=== PATIENT | male | born 1960 | race Caucasian/White ===

== ENCOUNTER 2020-04-16 06:54 | Outpatient (NON) | payer BC, SELFPAY ==
[2020-04-17 18:58] LABS: SARS-CoV-2 RNA PCR Negative
== END 2020-04-16 06:55 ==
LOC: ANHCOVIDDT 06:55
PROVIDERS: PCP Physician Assistant; Visit Provider Physician Assistant
DX: Z13.9 Encounter for screening, unspecified (principal); Z20.828 Contact with and (suspected) exposure to other viral communicable diseases
CPT/HCPCS: 87635; C9803; U0003

== ENCOUNTER → 2020-05-11 15:12 | Outpatient (CLI) | payer BC, SELFPAY ==
--- NOTE | ~2020-05-11 | MR_ITS ---
EXAMINATION: MR knee LT wo con DATE: 05/11/2020 15:51 INDICATION: Acute onset bilateral knee pain post fall 2-3 weeks prior.. TECHNIQUE: Magnetic resonance imaging (MRI) of the left knee was performed without intravenous contra st. Sequences included coronal PD-weighted FSE, coronal PD-weighted FS FSE, sagittal T2-weighted FSE , sagittal PD-weighted FS FSE and axial PD weighted fat saturated FSE. COMPARISON: None. FINDINGS: Medial compartment: Medial meniscus is normal. Articular cartilage is normal. Lateral compartment: Lateral meniscus is normal. Articular cartilage is normal. Patellofemoral compartment: Deep chondral ulceration with mild cortical irregularity and minimal subarticular edema at the both t he medial and lateral trochlea and intervening trochlear groove. Shallow chondral fissuring at the me dial patellar facet and apical ridge. Ligaments and tendons: Anterior and posterior cruciate ligaments are normal. Prominent thickening and increased signal of th e proximal third of the medial collateral ligament with surrounding edema consistent with likely high -grade partial possibly complete tear. Fibular collateral ligament complex is normal. The extensor me chanism is normal. The visualized medial and lateral hamstring tendons as well as the iliotibial band are normal. Fluid: Minimal joint effusion at the lateral gutter of the suprapatellar pouch. No loose osteochondral margaux s identified. Tiny Song's cyst. Osseous/other: There is marrow edema without evident fracture line along the anteromedial rim of the medial tibial p lateau, the medial margin of the mid weightbearing medial femoral condyle and lateral margin of the m id lateral weightbearing femoral condyle likely related to bone contusions. No fracture or pathologic marrow replacing process. IMPRESSION: 1. Complete or near-complete tear of the proximal medial collateral ligament. 2. Bone contusions along the peripheral margins of the weightbearing medial and lateral femoral condy les and anteromedial rim of the medial tibial plateau. 3. 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 Reviewed, dictated and finalized at location A. [employer] IMPRESSION: 1. Complete or near-complete tear of the proximal medial collateral ligament. 2. Bone contusions along the peripheral margins of the weightbearing medial and lateral femoral condyles and anteromedial rim of the medial tibial plateau. 3. 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
== END ==
PROVIDERS: PCP Physician Assistant; Visit Provider Internal Medicine
DX: M17.12 Unilateral primary osteoarthritis, left knee (principal); S80.02XA Contusion of left knee, initial encounter; X58.XXXA Exposure to other specified factors, initial encounter; S83.412A Sprain of medial collateral ligament of left knee, initial encounter
CPT/HCPCS: 73721

== ENCOUNTER → 2020-05-12 15:35 | Outpatient (CLI) | payer BC, SELFPAY ==
--- NOTE | ~2020-05-12 | MR_ITS ---
EXAMINATION: MR knee RT wo con DATE: 05/12/2020 16:23 INDICATION: Acute onset bilateral knee pain. TECHNIQUE: Magnetic resonance imaging (MRI) of the right knee was performed without intravenous contr ast. Sequences included coronal PD-weighted FSE, coronal PD-weighted FS FSE, sagittal T2-weighted FS E, sagittal PD-weighted FS FSE and axial PD weighted fat saturated FSE. COMPARISON: Left knee MRI dated 05/11/2020 FINDINGS: Medial compartment: Medial meniscus is normal. Articular cartilage is normal. Lateral compartment: Lateral meniscus is normal. Articular cartilage is normal. Patellofemoral compartment: Deep chondral ulceration with mild cortical irregularity and minimal subarticular edema at the both t he medial and lateral trochlea and intervening trochlear groove. Shallow chondral fissuring at the me dial patellar facet and apical ridge. This appears very similar to the contralateral left knee. Deep chondral fissure with tiny focus of subarticular edema at the patellar apical ridge. Ligaments and tendons: Anterior and posterior cruciate ligaments are normal. Thickening and prominent increased signal along the anterior margin of the proximal medial collateral ligament consistent with partial thickness tea r/moderate grade sprain which appears significantly less severe than the previous noted injury at the contralateral left knee. The fibular collateral ligament complex is normal. Mild distal quadriceps t endinopathy with tiny enthesophyte. Mild proximal patellar tendinopathy with small partial-thickness longitudinal split tear extending across the deeper two thirds of the proximal tendon. The visualized medial and lateral hamstring tendons as well as the iliotibial band are normal. Fluid: Minimal joint effusion at the lateral gutter of the suprapatellar pouch. No loose osteochondral margaux s identified. Osseous/other: Small regions of relatively mild marrow edema without discrete fracture lines along the anteromedial rim of the medial tibial plateau and posterolateral rim of the lateral tibial plateau consistent with likely posttraumatic bone contusions. No fracture or abnormal marrow replacing process. IMPRESSION: 1. Partial-thickness tear/moderate grade sprain of the proximal medial collateral ligament less sever e than previous noted at the contralateral left knee. 2. Bone contusions along the anteromedial rim of the medial tibial plateau and posterolateral rim of the lateral tibial plateau. 3. 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 4. Mild distal quadriceps and proximal patellar tendinopathy with small partial-thickness longitudina l split tear at the proximal patellar tendon. Reviewed, dictated and finalized at location A. OB IMPRESSION: 1. Partial-thickness tear/moderate grade sprain of the proximal medial collater al ligament less severe than previous noted at the contralateral left knee. 2. Bone contusions along the anteromedial rim of the medial tibial plateau and posterolateral rim of the lateral tibial plateau. 3. Mild to moderate patellofemoral osteoarthritis with extensive high-grade tro chlear chondromalacia and small focus of high-grade chondromalacia at the hassan la. 4. Mild distal quadriceps and proximal patellar tendinopathy with small partial -thickness longitudinal split tear at the proximal patellar tendon.
== END ==
PROVIDERS: Visit Provider Internal Medicine
DX: M17.11 Unilateral primary osteoarthritis, right knee (principal); S80.01XA Contusion of right knee, initial encounter; X58.XXXA Exposure to other specified factors, initial encounter
CPT/HCPCS: 73721

== ENCOUNTER 2021-03-31 02:26 | Day surgery (SDC) | payer BC, SELFPAY ==
[2021-03-15 15:15] VITALS: BMI 30.9
[2021-03-31 12:39] VITALS: BP 131/89; PULSE 73; RESP 17; TEMP 35.6; O2SAT 100; BMI 29.9
[2021-03-31] MEDS: LACTATED RINGERS 1,000 ML 150 ML IV CONT (12:44)
--- NOTE | 2021-03-31 12:45 | PM.HPGS ---
History of Present Illness History of Present Illness Consent: Risks, benefits, and alternatives have been discussed and questions answered. Patient agrees to proceed with procedure. Chief complaint: hx of colon polyps Narrative: Israel Allen is a 60 year old male Here for colon cancer screening. He has history of polyps Review of Systems Review of Systems: All systems reviewed & are unremarkable except as noted in HPI and below PMFSH Social History Social History Smoking status: Never smoker Alcohol intake: never Living arrangements: with family Spiritual care concerns: No Meds Home Medications and Allergies Home Medications Medication Instructions Recorded Confirmed Type atomoxetine 60 mg PO DAILY 03/15/21 03/31/21 History calcium carbonate-vitamin D3 1 tablet PO DAILY 03/15/21 03/31/21 History diphenhydramine HCl [Benadryl] 25 mg PO HS 03/15/21 03/31/21 History gabapentin 600 mg PO BID 03/15/21 03/31/21 History linaclotide [Linzess] 145 mcg PO 3XW 03/15/21 03/31/21 History lisinopril 5 mg PO DAILY 03/15/21 03/31/21 History multivit with min-folic acid 1 tablet PO DAILY 03/15/21 03/31/21 History [Adult One Daily Multivitamin] pioglitazone 15 mg PO DAILY 03/15/21 03/31/21 History potassium citrate 15 meq PO BID 03/15/21 03/31/21 History pravastatin 40 mg PO DAILY 03/15/21 03/31/21 History tamsulosin 0.4 mg PO DAILY 03/15/21 03/31/21 History Allergies Allergy/AdvReac Type Severity Reaction Status Date / Time Penicillins Allergy Unknown Other Verified 03/31/21 12:38 Vital Signs Vital Signs - 24 hr 03/31/21 12:39 Temperature 35.6 C L Pulse Rate 73 Respiratory Rate 17 Blood Pressure 131/89 Pulse Oximetry 100 Exam Resp: Auscultation: clear to auscultation bilaterally Cardio: Rate: regular rate Rhythm: regular rhythm GI: GI Palp: Yes Soft to palpation and No Tenderness to palpation present (GI) Assessment and Plan Assessment and plan (1) Colon cancer screening: Code(s): Z12.11 - Encounter for screening for malignant neoplasm of colon Status: Acute Assessment and Plan: Colonoscopy with possible biopsy or polypectomy or cautery or injection of substances.
[2021-03-31 12:57] LABS: Glucose Point of Care 80 mg/dl (65-105)
--- NOTE | 2021-03-31 13:00 | P.PNAN_ITS ---
Anes - Initial Pre Proc Eval Procedure: Operation Date: 03/31/21 14:00 Proposed Procedures p Screening Colonoscopy - Prem Campuzano MD Date/Time: 03/31/21 13:00 Surgeon: Prem Campuzano MD Pre Op Diagnosis: hx of colon polyps Patient Data Age: 60 Gender: M Height: 1.78 m Weight: 94.8 kg Last Vital Signs Temp 96.1 F L 03/31/21 12:39 Pulse 73 03/31/21 12:39 Resp 17 03/31/21 12:39 BP 131/89 03/31/21 12:39 Pulse Ox 100 03/31/21 12:39 Allergies Allergy/AdvReac Type Severity Reaction Status Date / Time Penicillins Allergy Unknown Other Verified 03/31/21 12:38 Home Medications Medication Instructions Recorded Confirmed Type atomoxetine 60 mg PO DAILY 03/15/21 03/31/21 History calcium carbonate-vitamin D3 1 tablet PO DAILY 03/15/21 03/31/21 History diphenhydramine HCl [Benadryl] 25 mg PO HS 03/15/21 03/31/21 History gabapentin 600 mg PO BID 03/15/21 03/31/21 History linaclotide [Linzess] 145 mcg PO 3XW 03/15/21 03/31/21 History lisinopril 5 mg PO DAILY 03/15/21 03/31/21 History multivit with min-folic acid 1 tablet PO DAILY 03/15/21 03/31/21 History [Adult One Daily Multivitamin] pioglitazone 15 mg PO DAILY 03/15/21 03/31/21 History potassium citrate 15 meq PO BID 03/15/21 03/31/21 History pravastatin 40 mg PO DAILY 03/15/21 03/31/21 History tamsulosin 0.4 mg PO DAILY 03/15/21 03/31/21 History Laboratory Tests 03/31/21 12:54 POC Capillary Glucose 80 mg/dl mg/dl (65-105) Patient hx anesthesia problems: none Family hx anesthesia problems: none Results Review: All pre-operative results and documents have been reviewed as part of the pre-operative evaluation. [facility] Social History Social History Smoking status: Never smoker Alcohol intake: never Living arrangements: with family Spiritual care concerns: No Anes - Eval Final PreProcedure Day of Procedure 03/31/21 13:00 Patient weight: obese Heart: regular rate and rhythm Lungs: clear to auscultation Airway: Mallampati scale class III Neurological: alert and oriented Last oral intake: >/= 8 hours ASA classification: III Emergent: no Anesthetic plan: proceed Anesthesia type and monitoring: general GIVS and standard monitoring Results Review: All pre-operative results and documents have been reviewed as part of the pre-operative evaluation. Informed Consent: The patient's anesthetic plan and its attendant risks and benefits were discussed with the patient/family/POA. Questions were solicited and answers provided to the satisfaction of the patient/family/POA.
[2021-03-31 14:00] VITALS: BP 107/71; PULSE 79; RESP 20; O2SAT 99
[2021-03-31 14:10] VITALS: BP 114/77; PULSE 71; RESP 20; O2SAT 100
[2021-03-31 14:20] VITALS: BP 123/82; PULSE 69; RESP 22; O2SAT 99
== END 2021-03-31 14:34 | disposition home or self-care (01) ==
PROVIDERS: PCP Physician Assistant; Visit Provider Internal Medicine Gastroenterology
PROC: 0DJD8ZZ Inspection of Lower Intestinal Tract, Via Natural or Artificial Opening Endoscopic (ICD-10-PCS; CPT 45378; principal; 2021-03-31 14:00)
DX: Z12.11 Encounter for screening for malignant neoplasm of colon (principal); K64.8 Other hemorrhoids; D12.3 Benign neoplasm of transverse colon; K63.5 Polyp of colon; E66.9 Obesity, unspecified; Z68.30 Body mass index [BMI] 30.0-30.9, adult
CPT/HCPCS: 45385; 82948; 88305; J2704; J7120